=== PATIENT | male | born 1965 | race Caucasian/White ===

== ENCOUNTER 2021-12-28 11:46 | Inpatient (IN) | payer OTHER ==
[~2021-12-28] VITALS: Ht 172.7 cm; Wt 80.0 kg
--- NOTE | 2021-12-28 11:50 | PHYS DOC ---
General Adult HPI: HPI: Patient is a 56 year old male brought in by EMS for weakness and altered mental status. The patient is an extremely poor historian, it is difficult to elicit any meaningful or consistently accurate information from him. I spoke with the patient's significant other, and she reports that he has been weak, not acting himself for at least 1 week. She has been trying to get him to seek care, but he had refused. She finally got him in the car and took him to a urgent care, and he nearly passed out and the lobby. The urgent care did not see him, but they called 911 to have him transferred to the hospital. The patient has a history of hypertension and diabetes, he has not reportedly been on medication since at least 2015. He is noncompliant with his diet. He has not seen a primary care physician in many years. There has been no reported head injury or trauma, other than the reported near syncope. The patient denies chest pain, dyspnea, cough. There is a question of whether or not he has had some chills and active fever. No documented fever here. He has not taken any medications at all in the last 24 hours. He has not been eating and drinking as he usually does. He has not been vaccinated against Covid or influenza. Significant other denies any recent sick contacts, travel history, he has not been hospitalized in many years. He has no reported history of alcohol use or illicit drug use. He has no history of similar symptoms or altered mental status. Review of Systems: Review of Systems: Unable to obtain meaningful review of systems secondary to clinical condition, please see HPI. Heart Score: C/O Chest Pain: N/A Risk Factors: Risk Factors: DM, Current or recent (<one month) smoker, HTN, HLP, family history of CAD, obesity. Risk Scores: Score 0 - 3: 2.5% MACE over next 6 weeks - Discharge Home Score 4 - 6: 20.3% MACE over next 6 weeks - Admit for Clinical Observation Score 7 - 10: 72.7% MACE over next 6 weeks - Early Invasive Strategies Physical Exam: PE: Constitutional: He is at least mildly ill-appearing, disheveled, frail, appears older than stated age. He is unkempt and relatively malodorous. HENT: Normocephalic, atraumatic, oropharynx is patent, mucous membranes are tacky, no obvious oral or facial trauma. TMs are clear bilaterally. Nares are patent without rhinorrhea epistaxis. No hemotympanum. No otorrhea Eyes: PERRL, EOMI, conjunctiva normal, no discharge. No nystagmus. Sclera anicteric. Neck: Normal range of motion, no tenderness, supple, no stridor. Achy midline, no JVD, no meningismus Cardiovascular: Tachycardic, regular, +2 radial and +2 posterior tibial pulses bilaterally. No cyanosis or edema. Warm and well-perfused appearing Lungs & Thorax: Lungs are clear to auscultation bilaterally without rales, rhonchi or wheezes. No stridor. No tachypnea. No evidence of chest or thorax trauma. Abdomen: Abdomen is soft, nondistended, nontender to palpation, no palpable pulsatile mass, no evidence of abdominal wall or thorax trauma. No flank or abdominal ecchymoses. Skin: Warm, dry, no erythema, no rash. No jaundice. Back: Extremities: No tenderness, no cyanosis, no clubbing, ROM intact, no edema. [] Neurologic: Alert and oriented X 3, normal motor function, normal sensory function, no focal deficits noted. [] Psychologic: Affect normal, judgement normal, mood normal. [] EKG: EKG: EKG is interpreted at 1200 Rhythm is sinus Rate is 99 bpm [place] is left No STEMI Q waves V1, V2, V3 Radiology/Procedures: Radiology/Procedures: IMAGING REPORT Signed PATIENT: DAMI REID ACCOUNT: [id number] : 1965 LOCATION: ER AGE: 56 SEX: M EXAM STATUS: REG ER ORD. PHYSICIAN: SHIVANI NI DO REASON: AMS PROCEDURE: PORTABLE CHEST 1V XR CHEST 1V History: Altered mental status Comparison: None. Technique: AP radiograph of the chest. Findings: The lungs are mildly hypoinflated. No airspace consolidation, pleural effusion or pneumothorax. The cardiomediastinal silhouette and pulmonary vasculature are within normal limits. No acute osseous abnormality. Flowing osteophytes in the thoracic spine. Soft tissues are unremarkable. Impression: 1. Mild hypoinflation. Electronically signed by: Gabriel العلي MD (12/28/2021 12:29 PM) [id number] DICTATED and SIGNED BY: GABRIEL العلي MD DATE: 12/28/21 [id number] IMAGING REPORT Signed PATIENT: DAMI REID ACCOUNT: [id number] : 1965 LOCATION: ER AGE: 56 SEX: M EXAM STATUS: REG ER ORD. PHYSICIAN: SHIVANI NI DO REASON: AMS, pt uncooperative, had to be held for CT PROCEDURE: CT HEAD WO CONTRAST CT HEAD/BRAIN WO History: Altered mental status. Comparison: None. Technique: Noncontrast CT imaging was performed of the head. Findings: No intracranial hemorrhage. No mass effect. No hydrocephalus. No evidence of acute territorial infarction. Imaged orbits are unremarkable. Imaged paranasal sinuses and mastoid air cells are clear. The scalp and calvarium are unremarkable. Impression: 1. No acute intracranial abnormality. ----- Exposure: One or more of the following individualized dose reduction techniques were utilized for this examination: 1. Automated exposure control 2. Adjustment of the mA and/or kV according to patient size 3. Use of iterative reconstruction technique. Electronically signed by: Gabriel العلي MD (12/28/2021 1:36 PM) [id number] DICTATED and SIGNED BY: GABRIEL العلي MD DATE: 12/28/21 [id number] Course & Med Decision Making: Course & Med Decision Making Pertinent Labs and Imaging studies reviewed. (See chart for details) I have discussed the findings, differential diagnosis and plan of care with the patient as well as his significant other. I recommend hospitalization. I discussed my recommendation for lumbar puncture with the significant other, she verbalizes understanding and gives verbal consent for the procedure. Please see associated note for lumbar puncture procedure. The patient was given IV Ativan and IM Haldol for agitation. On several occasions, the patient attempted get up, take off his clothing and walk around the ER. He tried to get out of the ED gurney, between the rails of the bed. He got up and urinated on the floor. He was able to be verbally redirected. His clinical manifestation is seemingly consistent with an encephalopathic etiology. He is given IV fluid boluses. Blood cultures were obtained. He is empirically given a dose of IV Zosyn. Magnesium placement were ordered. P.o. potassium replacement ordered, he refused to take it. The patient will receive IV potassium replacement during admission. The patient he is accepted for admission by Dr. Dolan. Tino Disclaimer: Tino Disclaimer: This electronic medical record was generated, in whole or in part, using a voice recognition dictation system. Departure Departure Impression: Primary Impression: Altered mental status Additional Impressions: Acute delirium Hypokalemia Hypomagnesemia Hyperglycemia due to diabetes mellitus Medical non-compliance Lactic acidosis Disposition: ADMITTED INPATIENT Admitting Physician: ZAIDA (Dr. Dolan) Condition: GUARDED RAINE,SHIVANI Wilkerson DO Dec 28, 2021 11:50
[2021-12-28] MEDS ORDERED: IV NORMAL SALINE 1000ML BAG 1,000 ML IV ONE ×2 (12:15→13:30)
--- NOTE | 2021-12-28 12:37 | RAD ---
XR CHEST 1V History: Altered mental status Comparison: None. Technique: AP radiograph of the chest. Findings: The lungs are mildly hypoinflated. No airspace consolidation, pleural effusion or pneumothorax. The c ardiomediastinal silhouette and pulmonary vasculature are within normal limits. No acute osseous abno rmality. Flowing osteophytes in the thoracic spine. Soft tissues are unremarkable. Impression: 1. Mild hypoinflation. Electronically signed by: Gabriel Concepcion MD (12/28/2021 12:29 PM) [id number]
[2021-12-28 12:49] LABS: BARBITURATES NEG (NEG); BENZODIAZEPINES NEG (NEG); CANNABINOIDS NEG (NEG); COCAINE NEG (NEG); METHADONE NEG (NEG); OPIATES NEG (NEG); PHENCYCLIDINE NEG (NEG)
[2021-12-28 12:49] LABS: ACETAMIN < 2 mcg/ml (10-30); SALIC 1.5 mg/dL (2.8-20.0)
[2021-12-28 12:50] LABS: AMPHETAMINE/METHAMPHETAMINE NEG (NEG)
[2021-12-28 12:50] LABS: ETHANOL < 10 mg/dL (0-10)
[2021-12-28 12:51] LABS: BASO % 0 % (0-3); EOS % 0 % (0-3); HEMATOCRIT 49.8 % (39.0-53.0); LYMPH # 1.3 x10^3/uL (1.0-4.8); LYMPH % 12 % (24-48); MEAN CORPUSCULAR HEMOGLOBIN 28 pg (25-35); MEAN CORPUSCULAR HGB CONC 34 g/dL (31-37); MEAN CORPUSCULAR VOLUME 82 fL (79-100); MONO # 0.5 x10^3/uL (0.0-1.1); MONO % 5 % (0-9); NEUT # 9.2 x10^3/uL (1.8-7.7); NEUT % 83 % (31-73); PLATELET COUNT 308 x10^3/uL (140-400); RED BLOOD COUNT 6.07 x10^6/uL (4.30-5.70); WHITE BLOOD COUNT 11.1 x10^3/uL (4.0-11.0)
[2021-12-28 12:56] LABS: BILIRUBIN,URINE NEGATIVE (NEG); CLARITY,URINE HAZY; COLOR,URINE YELLOW
[2021-12-28 12:57] LABS: NITRITE,URINE NEGATIVE (NEG); PROTEIN,URINE NEGATIVE (NEG-TRACE); UROBILINOGEN,URINE 0.2 mg/dL (0.2 mg/dL)
[2021-12-28 12:58] LABS: BACTERIA,URINE 0 /HPF (0-FEW)
[2021-12-28] MEDS ORDERED: HALOPERIDOL LACTATE 5 MG/ML VIAL. ONE (12:58)
[2021-12-28] MEDS ORDERED: HALOPERIDOL LACTATE 5 MG/ML VIAL. IM ONE (13:00)
[2021-12-28 13:04] LABS: INFLUENZA A PATIENT NEGATIVE (NEGATIVE); INFLUENZA B PATIENT NEGATIVE (NEGATIVE)
--- NOTE | 2021-12-28 13:39 | RAD ---
CT HEAD/BRAIN WO History: Altered mental status. Comparison: None. Technique: Noncontrast CT imaging was performed of the head. Findings: No intracranial hemorrhage. No mass effect. No hydrocephalus. No evidence of acute territorial infar ction. Imaged orbits are unremarkable. Imaged paranasal sinuses and mastoid air cells are clear. The scalp a nd calvarium are unremarkable. Impression: 1. No acute intracranial abnormality. ----- Exposure: One or more of the following individualized dose reduction techniques were utilized for thi s examination: 1. Automated exposure control 2. Adjustment of the mA and/or kV according to patient size 3. Use of iterative reconstruction technique. Electronically signed by: Gabriel Concepcion MD (12/28/2021 1:36 PM) [id number]
[2021-12-28 14:10] LABS: ALBUMIN 3.5 g/dL (3.4-5.0); ALBUMIN/GLOBULIN RATIO 0.9 (1.0-1.7); CALCIUM 7.5 mg/dL (8.5-10.1); CREATININE 0.9 mg/dL (0.7-1.3); GFR 87.3; MAGNESIUM 1.4 mg/dL (1.8-2.4); PHOSPHORUS 2.9 mg/dL (2.6-4.7); TOTAL PROTEIN 7.2 g/dL (6.4-8.2)
[2021-12-28 14:31] LABS: POTASSIUM 2.6 mmol/L (3.5-5.1)
[2021-12-28] MEDS: POTASSIUM CHLORIDE 20 MEQ TABLET.ER. PO ONE ×2 (14:45→15:18)
[2021-12-28] MEDS ORDERED: POTASSIUM CHLORIDE 20MEQ 100 ML IV ONE (14:45)
[2021-12-28] MEDS ORDERED: MAGNESIUM SULFATE 2GM 50 ML IV ONE (14:45)
[2021-12-28] MEDS ORDERED: PIPERACILLIN/TAZOBACTAM 3.375 GM in IV NORMAL SALINE 50ML 50 ML IV ONE (14:45)
[2021-12-28] MEDS: POTASSIUM CHLORIDE 10MEQ 100 ML IV SCH ×2 (14:49→15:57)
[2021-12-28] MEDS ORDERED: LIDOCAINE 1%/EPI 1:100,000 20 ML VIAL. INJ ONE (15:15)
[2021-12-28 16:46] LABS: CSF PROTEIN 143.6 mg/dL (15.0-45.0)
[2021-12-28 18:36] VITALS: BP 178/105
[2021-12-28] MEDS ORDERED: DEXTROSE 50% 25 GM / 50ML DISP.SYRIN. IV PRN ×2 (19:00)
[2021-12-28] MEDS ORDERED: diphenhydrAMINE HCL 25 MG CAPSULE PO PRN ×2 (19:00)
[2021-12-28] MEDS ORDERED: diphenhydrAMINE 50 MG/ML VIAL IVP PRN (19:00)
[2021-12-28] MEDS ORDERED: ACETAMINOPHEN 325 MG TABLET. PO PRN (19:00)
[2021-12-28] MEDS ORDERED: ONDANSETRON PF 4 MG/2 ML VIAL. IVP PRN (19:00)
[2021-12-28] MEDS ORDERED: PROCHLORPERAZINE 10 MG/2 ML VIAL. IV PRN (19:00)
[2021-12-28] MEDS ORDERED: SENNOSIDES 8.6 MG TABLET PO PRN (19:00)
[2021-12-28] MEDS ORDERED: LABETALOL 20 MG/4 ML DISP.SYRIN. IVP PRN (19:00)
[2021-12-28] MEDS ORDERED: LORazepam 0.5 MG TABLET PO PRN (19:00)
[2021-12-28] MEDS ORDERED: hydrALAZINE 20 MG/ML VIAL. IVP PRN (19:00)
[2021-12-28] MEDS ORDERED: ZOLPIDEM 5 MG TABLET. PO PRN (19:00)
[2021-12-28] MEDS ORDERED: DOCUSATE SODIUM 100 MG CAPSULE. PO PRN (19:00)
--- NOTE | 2021-12-28 19:03 | PDOC1 ---
History and Physical Date of Service: DOS: DATE: 12/28/21 TIME: 18:48 Chief Complaint: Chief Complain: Altered mental status. History of Present Illness: HPI: History obtained from discussion with the ED physician and chart review Patient is a 56-year-old male with past medical history of diabetes mellitus and hypertension who comes in for weakness and altered mental status. Patient's was the main source of history as the patient is unable to provide any meaningful history. Significant other states that the patient has not been acting himself for the past 1 week. actually had the patient go to urgent care but the patient passed out in the lobby and she he was immediately transferred to the hospital. states the patient has not been taking any medication for his hypertension and diabetes and is also noncompliant with his diet as well. Has not seen a PCP in many years approximately 6 years. No Covid or influenza vaccine. Denies any recent sick contacts or travel history and has not been in the hospital for many years. LP was completed in the ED by ED physician EKG shows normal sinus rhythm at rate of 99 bpm with left axis deviation. No acute ST elevations. There is Q waves in V1 through V3 Past Medical/Surgical History: PMH/PSH: History of diabetes mellitus and hypertension Allergies: Allergies: Coded Allergies: No Known Drug Allergies (Unverified , 12/28/21) Family History: Family History: Reviewed in the chart with no relative findings Social History: Social History: Limited due to altered mental status Current Medications: Current Medications Current Medications Sodium Chloride 1,000 ml @ 1,000 mls/hr 1X ONCE IV Last administered on 12/28/21at 13:00; Start 12/28/21 at 12:15; Stop 12/28/21 at 13:14; Status DC Lorazepam (Ativan Inj) 2 mg STK-MED ONCE .ROUTE ; Start 12/28/21 at 12:32; Stop 12/28/21 at 12:36; Status DC Lorazepam (Ativan Inj) 2 mg STK-MED ONCE .ROUTE ; Start 12/28/21 at 12:32; Stop 12/28/21 at 12:37; Status DC Haloperidol Lactate (Haldol Inj) 5 mg 1X ONCE IM Last administered on 12/28/21at 13:03; Start 12/28/21 at 13:00; Stop 12/28/21 at 13:08; Status DC Lorazepam (Ativan Inj) 2 mg 1X ONCE IVP Last administered on 12/28/21at 13:02; Start 12/28/21 at 13:00; Stop 12/28/21 at 13:08; Status DC Haloperidol Lactate (Haldol Inj) 5 mg STK-MED ONCE .ROUTE ; Start 12/28/21 at 12:58; Stop 12/28/21 at 12:58; Status DC Sodium Chloride 1,000 ml @ 1,000 mls/hr 1X ONCE IV Last administered on 12/28/21at 14:22; Start 12/28/21 at 13:30; Stop 12/28/21 at 14:29; Status DC Magnesium Sulfate 50 ml @ 25 mls/hr 1X ONCE IV Last administered on 12/28/21at 14:49; Start 12/28/21 at 14:45; Stop 12/28/21 at 16:44; Status DC Potassium Chloride/Water 100 ml @ 100 mls/hr 1X ONCE IV ; Start 12/28/21 at 14:45; Stop 12/28/21 at 14:38; Status DC Potassium Chloride (Klor-Con) 20 meq 1X ONCE PO ; Start 12/28/21 at 14:45; Stop 12/28/21 at 14:46; Status DC Piperacillin Sod/ Tazobactam Sod 3.375 gm/Sodium Chloride 50 ml @ 100 mls/hr 1X ONCE IV Last administered on 12/28/21at 14:48; Start 12/28/21 at 14:45; Stop 12/28/21 at 15:14; Status DC Potassium Chloride/Water 100 ml @ 100 mls/hr Q1H IV Last administered on 12/28/21at 15:57; Start 12/28/21 at 15:00; Stop 12/28/21 at 16:59; Status DC Lidocaine/ Epinephrine (LIDOCAINE 1%-EPI 1:100,000 Multi-Dose) 20 ml 1X ONCE INJ Last administered on 12/28/21at 15:15; Start 12/28/21 at 15:15; Stop 12/28/21 at 15:16; Status DC Lorazepam (Ativan Inj) 2 mg 1X ONCE IVP Last administered on 12/28/21at 15:45; Start 12/28/21 at 15:45; Stop 12/28/21 at 15:46; Status DC ROS: Review of Systems Review of System Limited due to altered mental status Physical Exam: Vital Signs: Vital Signs Date Time Temp Pulse Resp B/P (MAP) Pulse Ox O2 Delivery O2 Flow Rate FiO2 12/28/21 18:36 97.8 100 16 178/105 (129) 96 Room Air 97.8 Physcial Exam: General: Ill-appearing and disheveled and frail. HEENT: Pupils equally round and reactive to light, EOMI, no discharge, normal conjunctiva Neck: Supple, no nuchal rigidity, no JVD, trachea midline, no tenderness Cardiac: RRR, no murmurs, no gallops, no rubs Chest/Lungs: CTAB, no wheeze, no rhonchi, no crackles Abdomen: soft, non-distended, no guarding, no peritoneal signs, non-tender Back: No tenderness Extremities: no edema, pulses intact, non-tender,capillary refill <3 sec bilateral upper and lower extremities, Neuro: Alert and oriented x 4, no focal deficits, normal speech Labs: Labs: Laboratory Tests Test 12/28/21 12:05 12/28/21 12:13 12/28/21 12:28 12/28/21 13:40 White Blood Count 11.1 x10^3/uL (4.0-11.0) Red Blood Count 6.07 x10^6/uL (4.30-5.70) Hemoglobin 17.0 g/dL (13.0-17.5) Hematocrit 49.8 % (39.0-53.0) Mean Corpuscular Volume 82 fL (79-100) Mean Corpuscular Hemoglobin 28 pg (25-35) Mean Corpuscular Hemoglobin Concent 34 g/dL (31-37) Red Cell Distribution Width 13.0 % (11.5-14.5) Platelet Count 308 x10^3/uL (140-400) Neutrophils (%) (Auto) 83 % (31-73) Lymphocytes (%) (Auto) 12 % (24-48) Monocytes (%) (Auto) 5 % (0-9) Eosinophils (%) (Auto) 0 % (0-3) Basophils (%) (Auto) 0 % (0-3) Neutrophils # (Auto) 9.2 x10^3/uL (1.8-7.7) Lymphocytes # (Auto) 1.3 x10^3/uL (1.0-4.8) Monocytes # (Auto) 0.5 x10^3/uL (0.0-1.1) Eosinophils # (Auto) 0.0 x10^3/uL (0.0-0.7) Basophils # (Auto) 0.0 x10^3/uL (0.0-0.2) Erythrocyte Sedimentation Rate 4 (0-15) Lactic Acid Level 3.6 mmol/L (0.4-2.0) Ammonia < 10 mcmol/L (11-34) Troponin I High Sensitivity 10 ng/L (4-75) C-Reactive Protein, Quantitative 2.4 mg/L (0-3.3) Salicylates Level 1.5 mg/dL (2.8-20.0) Salicylate Last Dose Date Unknown Salicylate Last Dose Time Unknown Acetaminophen Level < 2 mcg/ml (10-30) Acetaminophen Last Dose Date Unknown Acetaminophen Last Dose Time Unknown Ethyl Alcohol Level < 10 mg/dL (0-10) Influenza Type A Antigen Negative (NEGATIVE) Influenza Type B Antigen Negative (NEGATIVE) SARS-CoV-2 Antigen (Rapid) Negative (NEGATIVE) Urine Collection Type Unknown Urine Color Yellow Urine Clarity Hazy Urine pH 7.0 (<5.0-8.0) Urine Specific [place] 1.015 (1.000-1.030) Urine Protein Negative mg/dL (NEG-TRACE) Urine Glucose (UA) >=1000 mg/dL (NEG) Urine Ketones (Stick) 80 mg/dL (NEG) Urine Blood Negative (NEG) Urine Nitrite Negative (NEG) Urine Bilirubin Negative (NEG) Urine Urobilinogen Dipstick 0.2 mg/dL (0.2 mg/dL) Urine Leukocyte Esterase Negative (NEG) Urine RBC 1-2 /HPF (0-2) Urine WBC 1-4 /HPF (0-4) Urine Squamous Epithelial Cells Occ /LPF Urine Bacteria 0 /HPF (0-FEW) Urine Opiates Screen Neg (NEG) Urine Methadone Screen Neg (NEG) Urine Barbiturates Neg (NEG) Urine Phencyclidine Screen Neg (NEG) Urine Amphetamine/Methamphetamine Neg (NEG) Urine Benzodiazepines Screen Neg (NEG) Urine Cocaine Screen Neg (NEG) Urine Cannabinoids Screen Neg (NEG) Urine Ethyl Alcohol Neg (NEG) Sodium Level 138 mmol/L (136-145) Potassium Level 2.6 mmol/L (3.5-5.1) Chloride Level 98 mmol/L (98-107) Carbon Dioxide Level 24 mmol/L (21-32) Anion Gap 16 (6-14) Blood Urea Nitrogen 15 mg/dL (8-26) Creatinine 0.9 mg/dL (0.7-1.3) Estimated GFR (Cockcroft-Gault) 87.3 BUN/Creatinine Ratio 17 (6-20) Glucose Level 322 mg/dL (70-99) Calcium Level 7.5 mg/dL (8.5-10.1) Phosphorus Level 2.9 mg/dL (2.6-4.7) Magnesium Level 1.4 mg/dL (1.8-2.4) Total Bilirubin 1.0 mg/dL (0.2-1.0) Aspartate Amino Transf (AST/SGOT) 13 U/L (15-37) Alanine Aminotransferase (ALT/SGPT) 24 U/L (16-63) Alkaline Phosphatase 110 U/L (46-116) Creatine Kinase 46 U/L (39-308) Total Protein 7.2 g/dL (6.4-8.2) Albumin 3.5 g/dL (3.4-5.0) Albumin/Globulin Ratio 0.9 (1.0-1.7) Thyroid Stimulating Hormone (TSH) 0.997 uIU/mL (0.358-3.74) Test 12/28/21 15:43 12/28/21 16:15 CSF Glucose 175 mg/dL (37-70) CSF Total Protein 143.6 mg/dL (15.0-45.0) Lactic Acid Level 2.7 mmol/L (0.4-2.0) Laboratory Tests Test 12/28/21 12:05 12/28/21 12:13 12/28/21 12:28 12/28/21 13:40 White Blood Count 11.1 x10^3/uL (4.0-11.0) Red Blood Count 6.07 x10^6/uL (4.30-5.70) Hemoglobin 17.0 g/dL (13.0-17.5) Hematocrit 49.8 % (39.0-53.0) Mean Corpuscular Volume 82 fL (79-100) Mean Corpuscular Hemoglobin 28 pg (25-35) Mean Corpuscular Hemoglobin Concent 34 g/dL (31-37) Red Cell Distribution Width 13.0 % (11.5-14.5) Platelet Count 308 x10^3/uL (140-400) Neutrophils (%) (Auto) 83 % (31-73) Lymphocytes (%) (Auto) 12 % (24-48) Monocytes (%) (Auto) 5 % (0-9) Eosinophils (%) (Auto) 0 % (0-3) Basophils (%) (Auto) 0 % (0-3) Neutrophils # (Auto) 9.2 x10^3/uL (1.8-7.7) Lymphocytes # (Auto) 1.3 x10^3/uL (1.0-4.8) Monocytes # (Auto) 0.5 x10^3/uL (0.0-1.1) Eosinophils # (Auto) 0.0 x10^3/uL (0.0-0.7) Basophils # (Auto) 0.0 x10^3/uL (0.0-0.2) Erythrocyte Sedimentation Rate 4 (0-15) Lactic Acid Level 3.6 mmol/L (0.4-2.0) Ammonia < 10 mcmol/L (11-34) Troponin I High Sensitivity 10 ng/L (4-75) C-Reactive Protein, Quantitative 2.4 mg/L (0-3.3) Salicylates Level 1.5 mg/dL (2.8-20.0) Salicylate Last Dose Date Unknown Salicylate Last Dose Time Unknown Acetaminophen Level < 2 mcg/ml (10-30) Acetaminophen Last Dose Date Unknown Acetaminophen Last Dose Time Unknown Ethyl Alcohol Level < 10 mg/dL (0-10) Influenza Type A Antigen Negative (NEGATIVE) Influenza Type B Antigen Negative (NEGATIVE) SARS-CoV-2 Antigen (Rapid) Negative (NEGATIVE) Urine Collection Type Unknown Urine Color Yellow Urine Clarity Hazy Urine pH 7.0 (<5.0-8.0) Urine Specific [place] 1.015 (1.000-1.030) Urine Protein Negative mg/dL (NEG-TRACE) Urine Glucose (UA) >=1000 mg/dL (NEG) Urine Ketones (Stick) 80 mg/dL (NEG) Urine Blood Negative (NEG) Urine Nitrite Negative (NEG) Urine Bilirubin Negative (NEG) Urine Urobilinogen Dipstick 0.2 mg/dL (0.2 mg/dL) Urine Leukocyte Esterase Negative (NEG) Urine RBC 1-2 /HPF (0-2) Urine WBC 1-4 /HPF (0-4) Urine Squamous Epithelial Cells Occ /LPF Urine Bacteria 0 /HPF (0-FEW) Urine Opiates Screen Neg (NEG) Urine Methadone Screen Neg (NEG) Urine Barbiturates Neg (NEG) Urine Phencyclidine Screen Neg (NEG) Urine Amphetamine/Methamphetamine Neg (NEG) Urine Benzodiazepines Screen Neg (NEG) Urine Cocaine Screen Neg (NEG) Urine Cannabinoids Screen Neg (NEG) Urine Ethyl Alcohol Neg (NEG) Sodium Level 138 mmol/L (136-145) Potassium Level 2.6 mmol/L (3.5-5.1) Chloride Level 98 mmol/L (98-107) Carbon Dioxide Level 24 mmol/L (21-32) Anion Gap 16 (6-14) Blood Urea Nitrogen 15 mg/dL (8-26) Creatinine 0.9 mg/dL (0.7-1.3) Estimated GFR (Cockcroft-Gault) 87.3 BUN/Creatinine Ratio 17 (6-20) Glucose Level 322 mg/dL (70-99) Calcium Level 7.5 mg/dL (8.5-10.1) Phosphorus Level 2.9 mg/dL (2.6-4.7) Magnesium Level 1.4 mg/dL (1.8-2.4) Total Bilirubin 1.0 mg/dL (0.2-1.0) Aspartate Amino Transf (AST/SGOT) 13 U/L (15-37) Alanine Aminotransferase (ALT/SGPT) 24 U/L (16-63) Alkaline Phosphatase 110 U/L (46-116) Creatine Kinase 46 U/L (39-308) Total Protein 7.2 g/dL (6.4-8.2) Albumin 3.5 g/dL (3.4-5.0) Albumin/Globulin Ratio 0.9 (1.0-1.7) Thyroid Stimulating Hormone (TSH) 0.997 uIU/mL (0.358-3.74) Test 12/28/21 15:43 12/28/21 16:15 CSF Glucose 175 mg/dL (37-70) CSF Total Protein 143.6 mg/dL (15.0-45.0) Lactic Acid Level 2.7 mmol/L (0.4-2.0) Images: Images PROCEDURE: CT HEAD WO CONTRAST CT HEAD/BRAIN WO History: Altered mental status. Comparison: None. Technique: Noncontrast CT imaging was performed of the head. Findings: No intracranial hemorrhage. No mass effect. No hydrocephalus. No evidence of acute territorial infarction. Imaged orbits are unremarkable. Imaged paranasal sinuses and mastoid air cells are clear. The scalp and calvarium are unremarkable. Impression: 1. No acute intracranial abnormality. PROCEDURE: PORTABLE CHEST 1V XR CHEST 1V History: Altered mental status Comparison: None. Technique: AP radiograph of the chest. Findings: The lungs are mildly hypoinflated. No airspace consolidation, pleural effusion or pneumothorax. The cardiomediastinal silhouette and pulmonary vasculature are within normal limits. No acute osseous abnormality. Flowing osteophytes in the thoracic spine. Soft tissues are unremarkable. Impression: 1. Mild hypoinflation. Assessment/Plan Assessment/Plan Acute metabolic/hypertensive encephalopathy Hypertensive urgency Lactic acidosis Severe hypokalemia Mild hyperglycemia Hypomagnesemia History of hypertension History of diabetes Admit to hospitalist service for further management Delirium prevention protocols Fall precautions Pending TSH and B12 levels IV electrolyte replacement as needed IV antihypertensive regimen to maintain systolic blood pressures between 140-180 Serial neuro exams R-ISS and Accu-Cheks Continue IV fluids while n.p.o. PT OT and speech modalities Lovenox for DVT prophylaxis Protonix GI prophylaxis ADA diet CODE STATUS full Discussed with RN and SW Disposition inpatient management as above DPOA: Justifications for Admission Other Justification BROWN ADKINS MD Dec 28, 2021 19:03
[2021-12-28 19:33] VITALS: BP 124/70
[2021-12-28 19:46] LABS: CSF CLARITY TURBID; CSF COLOR RED; CSF WBC COUNT 28 /cmm (Not Established)
[2021-12-28 19:47] LABS: CSF MON % 13 %; CSF PMN % 87 %; CSF RBC COUNT 27050 /cmm (Not Established)
[2021-12-28] MEDS: IV NORMAL SALINE 1000ML BAG 1,000 ML IV SCH (20:00)
[2021-12-28] MEDS ORDERED: ENOXAPARIN 40 MG/0.4 ML SYRINGE. SQ SCH (21:00)
[2021-12-28] MEDS: POTASSIUM CL 40MEQ IN 0.9%NACL 1,000 ML IV SCH (21:42)
[2021-12-28 23:36] VITALS: BP 134/61
[2021-12-29 03:24] VITALS: BP 133/81
[2021-12-29] MEDS: IV NORMAL SALINE 1000ML BAG 1,000 ML IV SCH (06:00)
[2021-12-29 07:00] VITALS: BP 129/75
[2021-12-29] MEDS ORDERED: PANTOPRAZOLE IV PUSH 40 MG VIAL. IVP SCH (07:30)
--- NOTE | 2021-12-29 07:48 | EKG ---
[facility] [address] [place] [address] Test Date: 2021-12-28 Test Time: 11:58:17 Pat Name: DAMI REID Department: Room: [facility] Gender: M [employer]: : 1965 Requested By: SHIVANI NI Order Number: [id number] Reading MD: Mello Perez MD Measurements Intervals [place] Rate: 99 P: 223 [place]: 112 QRS: -66 QRSD: 96 T: 35 QT: 370 QTc: 474 Interpretive Statements SINUS RHYTHM POOR R WAVE PROGRESSION INFERIOR INFARCT PATTERN Electronically Signed On 01-02-2022 11:23:20 [employer]ICULTURAL EQUIPMENT TEST ENGINEER by Mello Perez MD
[2021-12-29 08:05] LABS: BASO # 0.1 x10^3/uL (0.0-0.2); BASO % 1 % (0-3); EOS # 0.1 x10^3/uL (0.0-0.7); EOS % 1 % (0-3); HEMATOCRIT 42.5 % (39.0-53.0); HEMOGLOBIN 14.4 g/dL (13.0-17.5); LYMPH # 2.2 x10^3/uL (1.0-4.8); LYMPH % 28 % (24-48); MEAN CORPUSCULAR HEMOGLOBIN 28 pg (25-35); MEAN CORPUSCULAR HGB CONC 34 g/dL (31-37); MEAN CORPUSCULAR VOLUME 82 fL (79-100); MONO # 0.8 x10^3/uL (0.0-1.1); MONO % 10 % (0-9); NEUT # 4.7 x10^3/uL (1.8-7.7); NEUT % 61 % (31-73); PLATELET COUNT 243 x10^3/uL (140-400); RED BLOOD COUNT 5.16 x10^6/uL (4.30-5.70); RED CELL DISTRIBUTION WIDTH 12.9 % (11.5-14.5); WHITE BLOOD COUNT 7.8 x10^3/uL (4.0-11.0)
[2021-12-29 08:16] LABS: CALCIUM 7.2 mg/dL (8.5-10.1); CREATININE 0.6 mg/dL (0.7-1.3); GFR 139.4; MAGNESIUM 1.9 mg/dL (1.8-2.4); PHOSPHORUS 2.6 mg/dL (2.6-4.7); POTASSIUM 3.3 mmol/L (3.5-5.1)
[2021-12-29] MEDS: POTASSIUM CL 40MEQ IN 0.9%NACL 1,000 ML IV SCH (08:56)
[2021-12-29] MEDS: POTASSIUM CHLORIDE 10MEQ 100 ML IV SCH ×4 (08:57→12:41)
[2021-12-29] MEDS: INSULIN LISPRO 300 UNITS/3 ML VIAL. SQ SCH ×2 (09:01→12:06)
--- NOTE | 2021-12-29 10:48 | NUR ---
SW following. Discussed with RN, pt from home with , room air, ada diet, flu and Rapid COVID-19 negative. Per RN, possible discharge later today. RN advised no SW needs at this time. SW will continue to follow.
[2021-12-29 11:00] VITALS: BP 127/74
[2021-12-29] MEDS ORDERED: METF500T16 PO (11:55)
--- NOTE | 2021-12-29 11:56 | DISCH ---
DISCHARGE INSTRUCTIONS Condition on Discharge Condition on Discharge: Stable Activity After Discharge Activity Instructions for Disc: Activity as tolerated Lifting Instructions after Dis: No heavy lifting Exercise Instruction after Dis: Walk 30 min, 5 x per week Driving Instructions after Dis: Do not drive today Weight Bearing Status after Di: No restrictions Diet after Discharge Diet after Discharge: Diabetic No Calorie Level Follow-Up Follow up with: PCP within 2 weeks of discharge BROWN ADKINS MD Dec 29, 2021 11:56
[2021-12-29] MEDS ORDERED: metFORMIN 500 MG TABLET PO SCH ×2 (12:15→17:00)
--- NOTE | 2021-12-29 14:20 | NUR ---
Discharge Note: DAMI REID Discharge instructions and discharge home medications reviewed with Patient and Significant Other and a copy given. All questions have been answered and understanding verbalized. The following instructions and handouts were given: discharge instructions, new prescription, education and follow up recommendations. Discontinued lines and drains: Peripheral IV discontinued intact. Patient discharged to Home or Self Care with Significant Other via Wheelchair off unit by RESOURCING CONSULTANT.
[2021-12-30 02:09] LABS: HEMOGLOBIN A1C 11.7 % (4.8-5.6)
== END 2021-12-29 14:20 | disposition home or self-care (01) | DRG 304 ==
LOC: ER 11:46 → 5 NORTH 13:20
PROVIDERS: ADMIT Internal Medicine; ATTEND Internal Medicine
PROC: 009U3ZX Drainage of Spinal Canal, Percutaneous Approach, Diagnostic (ICD-10-PCS; principal; 2021-12-28)
DX: I16.0 Hypertensive urgency (principal); G93.41 Metabolic encephalopathy; I10 Essential (primary) hypertension; E87.6 Hypokalemia; M25.78 Osteophyte, vertebrae; Z91.19 Patient's noncompliance with other medical treatment and regimen; E83.42 Hypomagnesemia; E11.65 Type 2 diabetes mellitus with hyperglycemia; Z91.11 Patient's noncompliance with dietary regimen; Z20.822 Contact with and (suspected) exposure to COVID-19
CPT/HCPCS: 36415; 62270; 70450; 71045; 80048; 80053; 80307; 80329; 81001; 82140; 82550; 82607; 82945; 82962; 83036; 83605; 83735; 84100; 84157; 84443; 84484; 85025; 85651; 86140; 87040; 87075; 87077; 87428; 89051; 93005; 96361; 96365; 96366; 96368; 96372; 96375; 96376; C9113; G0480; J1630; J1650; J1815; J2060; J2543; J3475; J3480; J3490; J7030; 99285-25; G0378

== ENCOUNTER 2022-01-23 02:11 | Observation (INO) | payer OTHER ==
[~2022-01-23] VITALS: Ht 175.3 cm; Wt 79.5 kg
[~2022-01-23 02:11] MED LIST: METF500T16 PO
--- NOTE | 2022-01-23 02:21 | PHYS DOC ---
Past Medical History Past Surgical History: No Surgical History Smoking Status: Unknown if ever smoked Alcohol Use: None General Adult EDM: Chief Complaint: BLOOD SUGAR PROBLEM HPI: HPI: History obtained from patient. Patient is a 56-year-old male who presents via EMS with a past medical history significant for hypertension, [id number] diabetes who presents with nausea, vomiting, lightheadedness. He states he had 4-5 episodes of nonbloody nonbilious emesis today. States that 1 hour prior to arrival while laying in bed he became suddenly lightheaded. Denies any vertiginous symptoms. Notes he was recently started on Metformin and lisinopril. States his first dose was today. Notes he has been a diabetic for 10 years but has not been on medicine in 5. States he was recently hospitalized our facility a couple of weeks ago for similar issue with vomiting. Denies any diarrhea. States he has some mild diffuse abdominal cramping. States he does not have lightheadedness at this time. Denies chest pain or shortness of breath. Denies true syncope. Denies fevers. Per chart review patient was discharged from facility proximately week ago. Admitted for altered mental status and found to have hypokalemia, hypomagnesia, lactic acidosis, hyperglycemia. All these were treated and he was ultimately discharged home. Review of Systems: Review of Systems: Constitutional: Denies fever or chills. [] Eyes: Denies change in visual acuity. [] HENT: Denies nasal congestion or sore throat. [] Respiratory: Denies cough or shortness of breath. [] Cardiovascular: Positive for lightheaded GI: Positive for abdominal pain, nausea, vomiting : Denies dysuria. [] Musculoskeletal: Denies back pain or joint pain. [] Integument: Denies rash. [] Neurologic: Denies headache, focal weakness or sensory changes. [] Endocrine: Denies polyuria or polydipsia. [] Lymphatic: Denies swollen glands. [] Psychiatric: Denies depression or anxiety. [] Heart Score: C/O Chest Pain: No Risk Factors: Risk Factors: DM, Current or recent (<one month) smoker, HTN, HLP, family history of CAD, obesity. Risk Scores: Score 0 - 3: 2.5% MACE over next 6 weeks - Discharge Home Score 4 - 6: 20.3% MACE over next 6 weeks - Admit for Clinical Observation Score 7 - 10: 72.7% MACE over next 6 weeks - Early Invasive Strategies Allergies: Allergies: Allergies Coded Allergies Type Severity Reaction Last Updated Verified No Known Drug Allergies 12/28/21 No Physical Exam: PE: Constitutional: Well developed, well nourished, no acute distress, non-toxic appearance. [] HENT: Normocephalic, atraumatic, bilateral external ears normal, oropharynx moist, no oral exudates, nose normal. [] Eyes: PERRLA, EOMI, conjunctiva normal, no discharge. [] Neck: Normal range of motion, no tenderness, supple, no stridor. [] Cardiovascular:Heart rate regular rhythm, no murmur [] Lungs & Thorax: Bilateral breath sounds clear to auscultation [] Abdomen: Soft, nontender, nonacute abdomen. No involuntary guarding or rigidity noted. No acute peritonitis. Skin: Warm, dry, no erythema, no rash. [] Back: No tenderness, no CVA tenderness. [] Extremities: No tenderness, no cyanosis, no clubbing, ROM intact, no edema. [] Neurologic: Alert and oriented X 3, normal motor function, normal sensory function, no focal deficits noted. [] Psychologic: Affect normal, judgement normal, mood normal. [] Current Patient Data: Labs: Laboratory Tests Test 01/23/22 02:46 01/23/22 05:10 White Blood Count 9.9 x10^3/uL (4.0-11.0) Red Blood Count 5.68 x10^6/uL (4.30-5.70) Hemoglobin 16.2 g/dL (13.0-17.5) Hematocrit 47.0 % (39.0-53.0) Mean Corpuscular Volume 83 fL (79-100) Mean Corpuscular Hemoglobin 29 pg (25-35) Mean Corpuscular Hemoglobin Concent 35 g/dL (31-37) Red Cell Distribution Width 14.0 % (11.5-14.5) Platelet Count 260 x10^3/uL (140-400) Neutrophils (%) (Auto) 76 % (31-73) Lymphocytes (%) (Auto) 16 % (24-48) Monocytes (%) (Auto) 7 % (0-9) Eosinophils (%) (Auto) 1 % (0-3) Basophils (%) (Auto) 1 % (0-3) Neutrophils # (Auto) 7.5 x10^3/uL (1.8-7.7) Lymphocytes # (Auto) 1.6 x10^3/uL (1.0-4.8) Monocytes # (Auto) 0.7 x10^3/uL (0.0-1.1) Eosinophils # (Auto) 0.1 x10^3/uL (0.0-0.7) Basophils # (Auto) 0.1 x10^3/uL (0.0-0.2) Sodium Level 138 mmol/L (136-145) Chloride Level 99 mmol/L (98-107) Carbon Dioxide Level 27 mmol/L (21-32) Anion Gap 12 (6-14) Blood Urea Nitrogen 9 mg/dL (8-26) Estimated GFR (Cockcroft-Gault) 116.7 BUN/Creatinine Ratio 13 (6-20) Glucose Level 250 mg/dL (70-99) Lactic Acid Level 3.9 mmol/L (0.4-2.0) Calcium Level 8.8 mg/dL (8.5-10.1) Total Bilirubin 1.2 mg/dL (0.2-1.0) Aspartate Amino Transf (AST/SGOT) 12 U/L (15-37) Alkaline Phosphatase 100 U/L (46-116) Total Protein 7.9 g/dL (6.4-8.2) Albumin 4.0 g/dL (3.4-5.0) Albumin/Globulin Ratio 1.0 (1.0-1.7) Lipase 21 U/L (73-393) Ethyl Alcohol Level < 10 mg/dL (0-10) Urine Opiates Screen Neg (NEG) Urine Methadone Screen Neg (NEG) Urine Barbiturates Neg (NEG) Urine Phencyclidine Screen Neg (NEG) Urine Amphetamine/Methamphetamine Neg (NEG) Urine Benzodiazepines Screen Neg (NEG) Urine Cocaine Screen Neg (NEG) Urine Cannabinoids Screen Neg (NEG) Urine Ethyl Alcohol Neg (NEG) Vital Signs: Vital Signs Date Time Temp Pulse Resp B/P (MAP) Pulse Ox O2 Delivery O2 Flow Rate FiO2 01/23/22 02:15 97.6 94 22 202/98 (132) 96 Room Air 97.6 Vital Signs Date Time Temp Pulse Resp B/P (MAP) Pulse Ox O2 Delivery O2 Flow Rate FiO2 01/23/22 02:15 97.6 94 22 202/98 (132) 96 Room Air 97.6 EKG: EKG: EKG consistent with sinus tachycardia. Ventricular rate 101 bpm. Left axis deviation noted. And was normal. No acute ischemia noted. [] Radiology/Procedures: Radiology/Procedures: [facility] [address] [place] [address] IMAGING REPORT Signed PATIENT: DAMI REID ACCOUNT: [id number] : 1965 LOCATION: ER AGE: 56 SEX: M EXAM STATUS: PRE ER ORD. PHYSICIAN: DAVID MATTHEW DO REASON: abd pain, vomiting, OMNI 300 75 ML IV PROCEDURE: CT ABD PELV W/ IV CONTRST ONLY EXAMINATION: CT ABDOMEN+PELVIS W CLINICAL HISTORY: Abdominal pain, vomiting. TECHNIQUE: CT of the abdomen and pelvis was performed using standard technique, scanning from just above the dome of the diaphragm to the symphysis pubis following administration of intravenous contrast. CT Dose Reduction Employed: One or more of the following individualized dose reduction techniques were utilized for this examination: 1. Automated exposure control 2. Adjustment of the mA and/or kV according to patient size 3. Use of iterative reconstruction technique. COMPARISON: None FINDINGS: Minimal dependent bibasilar subsegmental atelectasis. Cholelithiasis. Liver, pancreas, spleen, and adrenal glands unremarkable. Mild bilateral hydroureteronephrosis. Moderate to markedly distended urinary bladder. Mildly enlarged prostate. No bowel dilation or definite wall thickening. Appendix within normal limits. Small hiatal hernia. Mild arterial atherosclerotic calcification without aneurysm. No evidence of acute osseous abnormality. IMPRESSION: Moderate to markedly distended urinary bladder and mild bilateral hydroureteronephrosis, correlate for bilateral of obstruction. Cholelithiasis. Electronically signed by: Ajit Pedersen DO (01/23/2022 5:02 AM) [facility] DICTATED and SIGNED BY: AJIT PEDERSEN DO DATE: 01/23/22 0453 [] Course & Med Decision Making: Course & Med Decision Making Pertinent Labs and Imaging studies reviewed. (See chart for details) Patient is a 56-year-old male who presents with a chief complaint of lightheadedness with intractable nausea and vomiting over the past 24 hours. In itial vital signs notable for tachycardia. Clinically patient does appear dehydrated and somewhat malnourished. Broad work-up obtained. He does have initial lactic acidosis of 3.9. Hypomagnesia present. I do suspect his lactic acidosis is due to dehydration. Aggressive IV fluids administered. CT abdomen pelvis reveals no acute surgical etiology including ischemic bowel. Alcohol level normal. UDS unremarkable. Antibiotics to be deferred at this time given there are no clear source of bacterial infection. Per chart review was actually hospitalized for similar presentation approximately 2 weeks ago. Exact cause of his vomiting is unclear. Could be related to gastroparesis if he has a long history of poorly controlled blood sugar. Orthostatic vital signs were assessed and patient did have a significant drop in his systolic blood pressure although he never did become hypotensive. Overall I did discuss the possibility of discharge home versus observation with the patient. Ultimately I do feel he wo uld benefit from further monitoring with IV fluids and magnesium replacement. Case discussed with hospitalist who agrees with plan. Repeat lactate currently pending Dragon Disclaimer: Tino Disclaimer: This electronic medical record was generated, in whole or in part, using a voice recognition dictation system. Departure Departure Impression: Primary Impression: Lactic acidosis Additional Impressions: Hypomagnesemia Hyperglycemia due to diabetes mellitus Disposition: ADMITTED INPATIENT Condition: GOOD Referrals: NO PCP (PCP) DAVID MATTHEW DO Jan 23, 2022 02:21
[2022-01-23] MEDS ORDERED: IV NORMAL SALINE 1000ML BAG 1,000 ML IV ONE ×3 (02:30→06:30)
[2022-01-23 02:55] LABS: BASO # 0.1 x10^3/uL (0.0-0.2); BASO % 1 % (0-3); EOS # 0.1 x10^3/uL (0.0-0.7); EOS % 1 % (0-3); HEMOGLOBIN 16.2 g/dL (13.0-17.5); LYMPH # 1.6 x10^3/uL (1.0-4.8); LYMPH % 16 % (24-48); MEAN CORPUSCULAR HEMOGLOBIN 29 pg (25-35); MEAN CORPUSCULAR HGB CONC 35 g/dL (31-37); MEAN CORPUSCULAR VOLUME 83 fL (79-100); MONO # 0.7 x10^3/uL (0.0-1.1); MONO % 7 % (0-9); NEUT # 7.5 x10^3/uL (1.8-7.7); NEUT % 76 % (31-73); PLATELET COUNT 260 x10^3/uL (140-400); RED BLOOD COUNT 5.68 x10^6/uL (4.30-5.70); WHITE BLOOD COUNT 9.9 x10^3/uL (4.0-11.0)
[2022-01-23] MEDS ORDERED: ONDANSETRON PF 4 MG/2 ML VIAL. IVP ONE (03:00)
[2022-01-23 03:03] LABS: CALCIUM 8.8 mg/dL (8.5-10.1); CREATININE 0.7 mg/dL (0.7-1.3); GFR 116.7; POTASSIUM 3.4 mmol/L (3.5-5.1)
[2022-01-23 03:09] LABS: MAGNESIUM 1.5 mg/dL (1.8-2.4); TOTAL BILIRUBIN 1.2 mg/dL (0.2-1.0); TOTAL PROTEIN 7.9 g/dL (6.4-8.2)
[2022-01-23] MEDS ORDERED: MAGNESIUM SULFATE 2GM 50 ML IV ONE (04:00)
[2022-01-23] MEDS ORDERED: CONTRAST GIVEN. MC PRN (05:00)
[2022-01-23] MEDS ORDERED: IOHEXOL 300 MG/ML 100ML VIAL. IV ONE (05:00)
--- NOTE | 2022-01-23 05:04 | RAD ---
EXAMINATION: CT ABDOMEN+PELVIS W CLINICAL HISTORY: Abdominal pain, vomiting. TECHNIQUE: CT of the abdomen and pelvis was performed using standard technique, scanning from just ab ove the dome of the diaphragm to the symphysis pubis following administration of intravenous contrast . CT Dose Reduction Employed: One or more of the following individualized dose reduction techniques wer e utilized for this examination: 1. Automated exposure control 2. Adjustment of the mA and/or kV ac cording to patient size 3. Use of iterative reconstruction technique. COMPARISON: None FINDINGS: Minimal dependent bibasilar subsegmental atelectasis. Cholelithiasis. Liver, pancreas, spleen, and adrenal glands unremarkable. Mild bilateral hydroureteronephrosis. Moderate to markedly distended urinary bladder. Mildly enlarged prostate. No bowel dilation or definite wall thickening. Appendix within normal limits. Small hiatal hernia. Mild arterial atherosclerotic calcification without aneurysm. No evidence of acute osseous abnormality. IMPRESSION: Moderate to markedly distended urinary bladder and mild bilateral hydroureteronephrosis, correlate fo r bilateral of obstruction. Cholelithiasis. Electronically signed by: Ajit Sung DO (01/23/2022 5:02 AM) SERVANDO
[2022-01-23 05:23] LABS: BARBITURATES NEG (NEG); BENZODIAZEPINES NEG (NEG); CANNABINOIDS NEG (NEG); COCAINE NEG (NEG); METHADONE NEG (NEG); OPIATES NEG (NEG); PHENCYCLIDINE NEG (NEG)
[2022-01-23 05:28] LABS: AMPHETAMINE/METHAMPHETAMINE NEG (NEG)
[2022-01-23] MEDS ORDERED: ONDANSETRON PF 4 MG/2 ML VIAL. IVP PRN (05:45)
--- NOTE | 2022-01-23 05:53 | EKG ---
[facility] [address] [place] [address] Test Date: 2022-01-23 Test Time: 05:02:02 Pat Name: DAMI REID Department: Room: Gender: M Electronic Pagination System Operator: [id number] : 1965 Requested By: DAVID MATTHEW Order Number: [id number] Reading MD: Michael Carlisle Measurements Intervals [place] Rate: 101 P: -98 CO: 122 QRS: -59 QRSD: 92 T: 35 QT: 366 QTc: 475 Interpretive Statements SINUS TACHYCARDIA ABNORMAL LEFT AXIS DEVIATION QRS(T) CONTOUR ABNORMALITY CONSISTENT WITH INFEROLATERAL INFARCT ABNORMAL ECG RI6.01 Electronically Signed On 01-28-2022 21:54:06 CDT by Michael Carlisle
[2022-01-23 08:30] VITALS: BP 154/86
--- NOTE | 2022-01-23 11:37 | HP ---
DATE OF SERVICE: 01/23/2022 ADMIT DATE: 01/23/2022 CHIEF COMPLAINT: Nausea, vomiting, weakness, lightheadedness, elevated glucose. HISTORY OF PRESENT ILLNESS: The patient is a pleasant middle-aged 56-year-old male who has been diabetic for 10 years. I do not think he has been on medicine for 5, but recently placed on Glucophage who presented with some abdominal pain, nausea, vomiting, lightheadedness. While in the ER, his CAT scan showed bilateral hydroureteronephrosis and gallstones. The patient has been admitted. We are consulting GI and Urology. PAST MEDICAL HISTORY: Diabetic, probable noncompliance, recent admission for nausea. ALLERGIES: None. FAMILY HISTORY: Diabetes. 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 He does not drink, smoke or take drugs. MEDICATIONS: Reviewed, please refer to the MRAD. REVIEW OF SYSTEMS: GENERAL: No history of weight change, weakness or fevers. SKIN: No bruising, hair changes or rashes. EYES: No blurred, double or loss of vision. NOSE AND THROAT: No history of nosebleeds, hoarseness or sore throat. HEART: No history of palpitations, chest pain or shortness of breath on exertion. LUNGS: Denies cough, hemoptysis, wheezing or shortness of breath. GASTROINTESTINAL: Denies changes in appetite, nausea, vomiting, diarrhea or constipation. GENITOURINARY: No history of frequency, urgency, hesitancy or nocturia. NEUROLOGIC: Denies history of numbness, tingling, tremor or weakness. PSYCHIATRIC: No history of panic, anxiety or depression. ENDOCRINE: No history of heat or cold intolerance, polyuria or polydipsia. EXTREMITIES: Denies muscle weakness, joint pain, pain on walking or stiffness. PHYSICAL EXAMINATION: VITALS: Within normal limits and are stable. GENERAL: No apparent distress. Alert and oriented. HEENT: Normal cephalic atraumatic, external auditory canals are patent. EYES: Extraocular muscles are intact, pupils are equally round and reactive to light and accommodation. MUSCULOSKELETAL: Well developed, well nourished, good range of motion. ENDOCRINE: No thyromegaly was palpated. LYMPHATICS: No cervical chain or axillary nodes were noted. HEMATOPOIETIC: No bruising. NECK: Supple, no JVD, no thyromegaly was noted. LUNGS: Clear to auscultation in all lung elam without rhonchi or wheezing. HEART: RRR, S1, S2 present. Peripheral pulses intact, no obvious murmurs were noted. ABDOMEN: Soft, nontender. Positive bowel sounds no organomegaly, normal bowel sounds. EXTREMITIES: Without any cyanosis, clubbing, or edema. Pedal pulses intact, Homans sign is negative. NEUROLOGIC: Normal speech, normal tone. A and O x 3, moves all extremities, no obvious focal deficits. PSYCHIATRIC: Normal affect, normal mood. Stable. SKIN: No ulcerations or rashes, good skin turgor, no jaundice. VASCULAR: Good capillary refill, neurovascular bundle appears to be intact.. LABORATORY DATA: White count 9, hemoglobin 16, platelets 260. Electrolytes normal other than potassium 3.4, glucose 250. Lactic acid is high at 3.9. CT of the abdomen shows bilateral hydroureteronephrosis and gallstones. ASSESSMENT AND PLAN: Nausea, vomiting, abdominal pain, bilateral hydroureteronephrosis and gallstones and incidental finding of hypokalemia and lactic acidosis and hyperglycemia. The patient will be admitted. We will give IV fluids. Consult Urology. Consult Gastroenterology. P.r.n. Zofran. Home meds. Deep venous thrombosis prophylaxis. Full code. Trend labs. Encourage p.o. intake. MIRIAM DR: DENA/francheska TID: [id number]
[2022-01-23] MEDS: IV NORMAL SALINE 1000ML BAG 1,000 ML IV SCH ×2 (12:10→22:30)
[2022-01-23 12:59] VITALS: BP 131/75
--- NOTE | 2022-01-23 12:59 | PDOC2 ---
GI CONSULT Date of Service: DATE: 01/23/22 TIME: 12:40 Reason For Consult: nausea vomiting gallstone HPI: HPI: 56 y/o male admitted through ER. Ill x 3 weeks - began with headache and blurry vision - admitted here w/ hypertensive urgency/encephalopathy. Head CT unremarkable then. Discharged w/ metformin which he apparently didn't take. Saw PCP on Sunday01/20/22 and was prescribed lisinopril and metformin which he took once on Sunday. During this time, has had intermittent n/v that was worse yesterday w/ weakness, dizziness, and being "really off balance." Fell down while urinating and stayed there awhile. Vomiting occurs several hours after eating, emesis contains chunks of food and liquid ("red powerade"). Occasional mild lower abdominal discomfort. Denies reflux/heartburn, dysphagia, hematemesis, constipation, hematochezia, melena, and change in appetite. Not unusual for him to have "diarrhea" (described as "gas and chunks"). No chronic n/v issues in the past. No previous EGD. "Rectal scope" in past at [facility] - was awake for procedure, can't remember if did any prep - done for intermittent rectal bleeding, was told had hemorrhoids. Denies GB, liver, pancreas, or PUD history. Takes ASA and Tylenol PRN. H/o DM since 2007 - took self off metformin, lisinopril, glipizide in [id number] "because they had no effect besides diarrhea," has lost 80 pounds since then unintentionally. Hypertensive in ER - BP 253/178 at one point. A1c on 12/29/[address]: distended urinary bladder and mild bilateral hydroureteronephrosis, also noted cholelithiasis. To have bladder scanned and urology to see. Theodore Mcelroy present. He ate regular breakfast this morning without issue. PMH: PMH: HTN, DM, asthma LP FH: Family History: Other (father - stage IV renal disease) ROS: GEN: Denies fevers, chills, sweats HEENT: Denies blurred vision, sore throat CV: Denies chest pain RESP: Denies shortness of air, cough GI: Per HPI : Denies hematuria, dysuria ENDO: +weight loss NEURO: +dizziness MSK: Denies weakness, joint pain/swelling SKIN: Denies jaundice, pruritus Vitals: Vitals: Vital Signs Date Time Temp Pulse Resp B/P (MAP) Pulse Ox O2 Delivery O2 Flow Rate FiO2 01/23/22 06:20 92 18 142/73 (96) 94 Room Air 01/23/22 02:15 97.6 97.6 Labs: Labs: Laboratory Tests Test 01/23/22 02:46 01/23/22 05:10 01/23/22 05:41 01/23/22 10:05 White Blood Count 9.9 x10^3/uL (4.0-11.0) Red Blood Count 5.68 x10^6/uL (4.30-5.70) Hemoglobin 16.2 g/dL (13.0-17.5) Hematocrit 47.0 % (39.0-53.0) Mean Corpuscular Volume 83 fL (79-100) Mean Corpuscular Hemoglobin 29 pg (25-35) Mean Corpuscular Hemoglobin Concent 35 g/dL (31-37) Red Cell Distribution Width 14.0 % (11.5-14.5) Platelet Count 260 x10^3/uL (140-400) Neutrophils (%) (Auto) 76 % (31-73) Lymphocytes (%) (Auto) 16 % (24-48) Monocytes (%) (Auto) 7 % (0-9) Eosinophils (%) (Auto) 1 % (0-3) Basophils (%) (Auto) 1 % (0-3) Neutrophils # (Auto) 7.5 x10^3/uL (1.8-7.7) Lymphocytes # (Auto) 1.6 x10^3/uL (1.0-4.8) Monocytes # (Auto) 0.7 x10^3/uL (0.0-1.1) Eosinophils # (Auto) 0.1 x10^3/uL (0.0-0.7) Basophils # (Auto) 0.1 x10^3/uL (0.0-0.2) Sodium Level 138 mmol/L (136-145) Potassium Level 3.4 mmol/L (3.5-5.1) Chloride Level 99 mmol/L (98-107) Carbon Dioxide Level 27 mmol/L (21-32) Anion Gap 12 (6-14) Blood Urea Nitrogen 9 mg/dL (8-26) Creatinine 0.7 mg/dL (0.7-1.3) Estimated GFR (Cockcroft-Gault) 116.7 BUN/Creatinine Ratio 13 (6-20) Glucose Level 250 mg/dL (70-99) Lactic Acid Level 3.9 mmol/L (0.4-2.0) 2.4 mmol/L (0.4-2.0) 2.7 mmol/L (0.4-2.0) Calcium Level 8.8 mg/dL (8.5-10.1) Magnesium Level 1.5 mg/dL (1.8-2.4) Total Bilirubin 1.2 mg/dL (0.2-1.0) Aspartate Amino Transf (AST/SGOT) 12 U/L (15-37) Alanine Aminotransferase (ALT/SGPT) 20 U/L (16-63) Alkaline Phosphatase 100 U/L (46-116) Total Protein 7.9 g/dL (6.4-8.2) Albumin 4.0 g/dL (3.4-5.0) Albumin/Globulin Ratio 1.0 (1.0-1.7) Lipase 21 U/L (73-393) Ethyl Alcohol Level < 10 mg/dL (0-10) Urine Opiates Screen Neg (NEG) Urine Methadone Screen Neg (NEG) Urine Barbiturates Neg (NEG) Urine Phencyclidine Screen Neg (NEG) Urine Amphetamine/Methamphetamine Neg (NEG) Urine Benzodiazepines Screen Neg (NEG) Urine Cocaine Screen Neg (NEG) Urine Cannabinoids Screen Neg (NEG) Urine Ethyl Alcohol Neg (NEG) Allergies: Coded Allergies: No Known Drug Allergies (Unverified , 12/28/21) Medications: Current Medications Medications (Trade) Dose Ordered Sig/Chapin Route PRN Reason Start Time Stop Time Status Last Admin Dose Admin Sodium Chloride 1,000 ml @ 30 mls/hr 1X ONCE IV 01/23/22 03:00 01/24/22 12:19 01/23/22 02:30 Sodium Chloride 1,000 ml @ 200 mls/hr 1X ONCE IV 01/23/22 02:30 01/23/22 07:29 DC 01/23/22 02:29 Ondansetron HCl (Zofran) 8 mg 1X ONCE IVP 01/23/22 03:00 01/23/22 03:01 DC 01/23/22 02:31 Magnesium Sulfate 50 ml @ 50 mls/hr 1X ONCE IV 01/23/22 04:00 01/23/22 04:59 DC 01/23/22 04:04 Iohexol (Omnipaque 300 Mg/ml) 75 ml 1X ONCE IV 01/23/22 05:00 01/23/22 05:01 DC 01/23/22 04:51 Sodium Chloride 1,000 ml @ 1,000 mls/hr 1X ONCE IV 01/23/22 06:30 01/23/22 07:29 DC 01/23/22 03:30 Imaging: Imaging: CT A/P IMPRESSION: Moderate to markedly distended urinary bladder and mild bilateral hydroureteronephrosis, correlate for bilateral of obstruction. Cholelithiasis. PE: GEN: NAD HEENT: Atraumatic, PERRL LUNGS: CTAB HEART: RRR ABD: NABS, S/ND/NT EXTREMITY: No edema SKIN: No rashes, no jaundice NEURO/PSYCH: A & O 3 A/P: A/P: Weakness, dizziness, fall Uncontrolled HTN and DM, non-compliance N/v, intermittent lower abdominal discomfort (?suprapubic) Lactic acidosis, hypomagnesemia Abnormal CT - distended urinary bladder, mild bilateral hydroureteronephrosis CRC screen - non previous colonoscopy H/o hemorrhoids Cholelithiasis - noted on CT -- Suspect n/v related to uncontrolled HTN and DM. Continue per primary and urology. Now tolerating diet - observe from GI standpoint. 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 Cholelithiasis seems like incidental finding - no upper abdominal pain, normal LFTs, etc. Needs outpt screening colonoscopy, could consider EGD at that time if n/v a recurrent issue. WESLEY NATION Jan 23, 2022 12:59
--- NOTE | 2022-01-23 13:55 | PDOC2 ---
UROLOGY CONSULT Date of Service DATE: 01/23/22 TIME: 13:45 Reason for Consult Reason for Consult: hydronephrosis Identification/Chief Complaint Chief Complaint nausea History of Present Illness Reason for Visit: 56yo male presented to the ER for nausea, vomiting, and diarrhea. CT a/p was done that showed bilateral hydroureteronephrosis and markedly distended bladder. Urology was consulted to address this. Pt denies prior knowledge of this. Has never seen a urologist. He feels that he empties his bladder well. Denies slow stream, hesitancy, incontinence, dysuria, hematuria. Denies prior history of urologic surgery. Only voids 1-2 times per day. Nocturia 0-1x. He does have uncontrolled diabetes, stopped his medications for this in 2016. His A1c was almost 12. Cr normal. Pt asking to go home today. Past Medical History Endocrine: Diabetes Family History Family History: Family History Unknown Social History No ALCOHOL: none Current Medications Current Medications Current Medications Info (CONTRAST GIVEN -- Rx MONITORING) 1 each PRN DAILY PRN MC SEE COMMENTS; Start 01/23/22 at 05:00; Stop 01/25/22 at 04:59 Iohexol (Omnipaque 300 Mg/ml) 75 ml 1X ONCE IV Last administered on 01/23/22at 04:51; Start 01/23/22 at 05:00; Stop 01/23/22 at 05:01; Status DC Magnesium Sulfate 50 ml @ 50 mls/hr 1X ONCE IV Last administered on 01/23/22at 04:04; Start 01/23/22 at 04:00; Stop 01/23/22 at 04:59; Status DC Ondansetron HCl (Zofran) 4 mg PRN Q8HRS PRN IVP NAUSEA/VOMITING 1ST CHOICE; Start 01/23/22 at 05:45; Stop 01/24/22 at 05:44 Ondansetron HCl (Zofran) 8 mg 1X ONCE IVP Last administered on 01/23/22at 02:31; Start 01/23/22 at 03:00; Stop 01/23/22 at 03:01; Status DC Pantoprazole Sodium (Protonix) 40 mg DAILYAC PO ; Start 01/23/22 at 13:30 Sodium Chloride 1,000 ml @ 30 mls/hr 1X ONCE IV Last administered on 01/23/22at 02:30; Start 01/23/22 at 03:00; Stop 01/24/22 at 12:19 Sodium Chloride 1,000 ml @ 75 mls/hr [id number] IV ; Start 01/23/22 at 11:30 Sodium Chloride 1,000 ml @ 200 mls/hr 1X ONCE IV Last administered on 01/23/22at 02:29; Start 01/23/22 at 02:30; Stop 01/23/22 at 07:29; Status DC Sodium Chloride 1,000 ml @ 1,000 mls/hr 1X ONCE IV Last administered on 01/23/22at 03:30; Start 01/23/22 at 06:30; Stop 01/23/22 at 07:29; Status DC Allergies Allergies: Coded Allergies: No Known Drug Allergies (Unverified , 12/28/21) ROS Review Of Systems: CONSTITUTIONAL: No fever or chills EYES: No recent changes SKIN: No rash or itching CARDIOVASCULAR: No chest pain, syncope, palpitations, or edema RESPIRATORY: No SOB or cough GASTROINTESTINAL: +nausea, vomiting NEUROLOGICAL: No headaches or weakness ENDOCRINE: No cold or heat intolerance GENITOURINARY: No urgency or frequency of urination MUSCULOSKELETAL: No back pain or joint pain LYMPHATICS: No enlarged lymph nodes PSYCHIATRIC: No anxiety or depression Physical Exam Physical Exam: General: Pleasant, no acute distress, well groomed Eyes: conjunctiva anicteric, eyes full range of motion ENT: moist oral mucosa, normal dentition Neck: Trachea midline, no masses Respiratory: unlabored breathing, not using accessory muscles, no crackles or wheezes Cardiovascular: Regular rate and rhythm, no peripheral edema Abdomen: nontender, nondistended, no hepatosplenomegaly, no masses Skin: no rashes or skin lesions on visualized skin Psych: normal mood, affect. Alert and oriented x 3. Vitals VITALS Vital Signs Date Time Temp Pulse Resp B/P (MAP) Pulse Ox O2 Delivery O2 Flow Rate FiO2 01/23/22 12:59 98.0 91 16 131/75 (93) 96 Room Air 98.0 Labs Labs Laboratory Tests Test 01/23/22 02:46 01/23/22 05:10 01/23/22 05:41 01/23/22 10:05 White Blood Count 9.9 x10^3/uL (4.0-11.0) Red Blood Count 5.68 x10^6/uL (4.30-5.70) Hemoglobin 16.2 g/dL (13.0-17.5) Hematocrit 47.0 % (39.0-53.0) Mean Corpuscular Volume 83 fL (79-100) Mean Corpuscular Hemoglobin 29 pg (25-35) Mean Corpuscular Hemoglobin Concent 35 g/dL (31-37) Red Cell Distribution Width 14.0 % (11.5-14.5) Platelet Count 260 x10^3/uL (140-400) Neutrophils (%) (Auto) 76 % (31-73) Lymphocytes (%) (Auto) 16 % (24-48) Monocytes (%) (Auto) 7 % (0-9) Eosinophils (%) (Auto) 1 % (0-3) Basophils (%) (Auto) 1 % (0-3) Neutrophils # (Auto) 7.5 x10^3/uL (1.8-7.7) Lymphocytes # (Auto) 1.6 x10^3/uL (1.0-4.8) Monocytes # (Auto) 0.7 x10^3/uL (0.0-1.1) Eosinophils # (Auto) 0.1 x10^3/uL (0.0-0.7) Basophils # (Auto) 0.1 x10^3/uL (0.0-0.2) Sodium Level 138 mmol/L (136-145) Potassium Level 3.4 mmol/L (3.5-5.1) Chloride Level 99 mmol/L (98-107) Carbon Dioxide Level 27 mmol/L (21-32) Anion Gap 12 (6-14) Blood Urea Nitrogen 9 mg/dL (8-26) Creatinine 0.7 mg/dL (0.7-1.3) Estimated GFR (Cockcroft-Gault) 116.7 BUN/Creatinine Ratio 13 (6-20) Glucose Level 250 mg/dL (70-99) Lactic Acid Level 3.9 mmol/L (0.4-2.0) 2.4 mmol/L (0.4-2.0) 2.7 mmol/L (0.4-2.0) Calcium Level 8.8 mg/dL (8.5-10.1) Magnesium Level 1.5 mg/dL (1.8-2.4) Total Bilirubin 1.2 mg/dL (0.2-1.0) Aspartate Amino Transf (AST/SGOT) 12 U/L (15-37) Alanine Aminotransferase (ALT/SGPT) 20 U/L (16-63) Alkaline Phosphatase 100 U/L (46-116) Total Protein 7.9 g/dL (6.4-8.2) Albumin 4.0 g/dL (3.4-5.0) Albumin/Globulin Ratio 1.0 (1.0-1.7) Lipase 21 U/L (73-393) Ethyl Alcohol Level < 10 mg/dL (0-10) Urine Opiates Screen Neg (NEG) Urine Methadone Screen Neg (NEG) Urine Barbiturates Neg (NEG) Urine Phencyclidine Screen Neg (NEG) Urine Amphetamine/Methamphetamine Neg (NEG) Urine Benzodiazepines Screen Neg (NEG) Urine Cocaine Screen Neg (NEG) Urine Cannabinoids Screen Neg (NEG) Urine Ethyl Alcohol Neg (NEG) Laboratory Tests Test 01/23/22 02:46 01/23/22 05:10 01/23/22 05:41 01/23/22 10:05 White Blood Count 9.9 x10^3/uL (4.0-11.0) Red Blood Count 5.68 x10^6/uL (4.30-5.70) Hemoglobin 16.2 g/dL (13.0-17.5) Hematocrit 47.0 % (39.0-53.0) Mean Corpuscular Volume 83 fL (79-100) Mean Corpuscular Hemoglobin 29 pg (25-35) Mean Corpuscular Hemoglobin Concent 35 g/dL (31-37) Red Cell Distribution Width 14.0 % (11.5-14.5) Platelet Count 260 x10^3/uL (140-400) Neutrophils (%) (Auto) 76 % (31-73) Lymphocytes (%) (Auto) 16 % (24-48) Monocytes (%) (Auto) 7 % (0-9) Eosinophils (%) (Auto) 1 % (0-3) Basophils (%) (Auto) 1 % (0-3) Neutrophils # (Auto) 7.5 x10^3/uL (1.8-7.7) Lymphocytes # (Auto) 1.6 x10^3/uL (1.0-4.8) Monocytes # (Auto) 0.7 x10^3/uL (0.0-1.1) Eosinophils # (Auto) 0.1 x10^3/uL (0.0-0.7) Basophils # (Auto) 0.1 x10^3/uL (0.0-0.2) Sodium Level 138 mmol/L (136-145) Potassium Level 3.4 mmol/L (3.5-5.1) Chloride Level 99 mmol/L (98-107) Carbon Dioxide Level 27 mmol/L (21-32) Anion Gap 12 (6-14) Blood Urea Nitrogen 9 mg/dL (8-26) Creatinine 0.7 mg/dL (0.7-1.3) Estimated GFR (Cockcroft-Gault) 116.7 BUN/Creatinine Ratio 13 (6-20) Glucose Level 250 mg/dL (70-99) Lactic Acid Level 3.9 mmol/L (0.4-2.0) 2.4 mmol/L (0.4-2.0) 2.7 mmol/L (0.4-2.0) Calcium Level 8.8 mg/dL (8.5-10.1) Magnesium Level 1.5 mg/dL (1.8-2.4) Total Bilirubin 1.2 mg/dL (0.2-1.0) Aspartate Amino Transf (AST/SGOT) 12 U/L (15-37) Alanine Aminotransferase (ALT/SGPT) 20 U/L (16-63) Alkaline Phosphatase 100 U/L (46-116) Total Protein 7.9 g/dL (6.4-8.2) Albumin 4.0 g/dL (3.4-5.0) Albumin/Globulin Ratio 1.0 (1.0-1.7) Lipase 21 U/L (73-393) Ethyl Alcohol Level < 10 mg/dL (0-10) Urine Opiates Screen Neg (NEG) Urine Methadone Screen Neg (NEG) Urine Barbiturates Neg (NEG) Urine Phencyclidine Screen Neg (NEG) Urine Amphetamine/Methamphetamine Neg (NEG) Urine Benzodiazepines Screen Neg (NEG) Urine Cocaine Screen Neg (NEG) Urine Cannabinoids Screen Neg (NEG) Urine Ethyl Alcohol Neg (NEG) Images Images EXAMINATION: CT ABDOMEN+PELVIS W CLINICAL HISTORY: Abdominal pain, vomiting. TECHNIQUE: CT of the abdomen and pelvis was performed using standard technique, scanning from just above the dome of the diaphragm to the symphysis pubis following administration of intravenous contrast. CT Dose Reduction Employed: One or more of the following individualized dose reduction techniques were utilized for this examination: 1. Automated exposure control 2. Adjustment of the mA and/or kV according to patient size 3. Use of iterative reconstruction technique. COMPARISON: None FINDINGS: Minimal dependent bibasilar subsegmental atelectasis. Cholelithiasis. Liver, pancreas, spleen, and adrenal glands unremarkable. Mild bilateral hydroureteronephrosis. Moderate to markedly distended urinary bladder. Mildly enlarged prostate. No bowel dilation or definite wall thickening. Appendix within normal limits. Small hiatal hernia. Mild arterial atherosclerotic calcification without aneurysm. No evidence of acute osseous abnormality. IMPRESSION: Moderate to markedly distended urinary bladder and mild bilateral hydroureteronephrosis, correlate for bilateral of obstruction. Cholelithiasis. Electronically signed by: Ajit Sung DO (01/23/2022 5:02 AM) [facility] Assessment/Plan Assessment/Plan Bilateral hydroureteronephrosis Images reviewed Check UA. Cr normal. Obstructive uropathy most likely due to markedly distended bladder. Elevated PVR's. Causes for this BPH and/or neurogenic bladder 2/2 uncontrolled DM. Recommend seymour placement for bladder and renal decompression. Start tamsulosin. Voiding trial in 1-2 week with follow-up renal ultrasound. May also need cystoscopy and urodynamics to further determine cause of incomplete bladder emptying. Also screening PSA, but not today due to seymour placement. I discussed the above with pt and he voiced understanding. Ok with d/c per hospitalist. Please call with questions. D/w Dr. Trinidad. BRADLY JOSEPH Jan 23, 2022 13:55
[2022-01-23 15:00] VITALS: BP 139/85
[2022-01-23 15:13] LABS: BACTERIA,URINE 0 /HPF (0-FEW); WBC,URINE 0 /HPF (0-4)
[2022-01-23] MEDS: PANTOPRAZOLE 40 MG TABLET.DR. PO SCH (16:10)
[2022-01-23 19:00] VITALS: BP 156/79
[2022-01-23 23:00] VITALS: BP 173/87
[2022-01-24 03:00] VITALS: BP 166/95
[2022-01-24] MEDS: PANTOPRAZOLE 40 MG TABLET.DR. PO SCH ×2 (07:30→07:50)
[2022-01-24 08:00] VITALS: BP 143/82
--- NOTE | 2022-01-24 10:05 | PDOC ---
Date of Service: DATE: 01/24/22 TIME: 10:00 Subjective: Subjective: Still asleep - not much history from pt this morning - opened eyes briefly. Objective: Objective: No GI concerns per nurse - aware that he is difficult to awaken today. Reports urology plans to DC w/ García. Apparently refused pantoprazole. Vital Signs: Vital Signs Date Time Temp Pulse Resp B/P (MAP) Pulse Ox O2 Delivery O2 Flow Rate FiO2 01/24/22 08:00 98.3 72 12 143/82 (102) 90 Room Air 98.3 Labs: Laboratory Tests Test 01/23/22 10:05 01/23/22 14:10 01/23/22 17:08 01/23/22 19:56 Lactic Acid Level 2.7 mmol/L Urine Collection Type Unknown Urine Color (Auto) Yellow Urine Turbidity Clear Urine pH (Auto) 7.0 Urine Specific [place] 1.017 Urine Protein (Auto) Negative mg/dL Urine Glucose (Auto)(UA) >=1000 mg/dL Urine Ketones (Auto) 10 mg/dL Urine Blood (Auto) Negative Urine Nitrite Negative Urine Bilirubin (Auto) Negative Urine Urobilinogen (Auto) 4 mg/dL Urine Leukocyte Esterase (Auto) Negative Urine RBC 3-5 /HPF Urine WBC 0 /HPF Urine Squamous Epithelial Cells Few /LPF Urine Bacteria 0 /HPF Urine Mucus Slight /LPF Glucose (Fingerstick) 221 mg/dL 248 mg/dL Test 01/24/22 08:21 Glucose (Fingerstick) 227 mg/dL PE: GEN: NAD LUNGS: CTAB HEART: RRR ABD: S/ND/NT NEURO/PSYCH: lethargic, difficult to rouse this morning A/P: Uncontrolled HTN and DM, non-compliance N/v - resolved Lactic acidosis, hypomagnesemia - no labs today Bilateral hydroureteronephrosis, distended bladder - per urology Cholelithiasis - incidental CT finding -- Lethargic today. GI-canela, no recurrent vomiting. Continue per primary/urology. Justicifation of Admission Dx: Justifications for Admission: Justification of Admission Dx: Yes Altered Mental Status: Altered Mental Status [place] Jan 24, 2022 10:04
[2022-01-24 10:26] LABS: BASO # 0.1 x10^3/uL (0.0-0.2); BASO % 1 % (0-3); EOS # 0.1 x10^3/uL (0.0-0.7); EOS % 2 % (0-3); HEMATOCRIT 41.8 % (39.0-53.0); HEMOGLOBIN 14.4 g/dL (13.0-17.5); LYMPH # 2.1 x10^3/uL (1.0-4.8); LYMPH % 24 % (24-48); MEAN CORPUSCULAR HEMOGLOBIN 28 pg (25-35); MEAN CORPUSCULAR HGB CONC 34 g/dL (31-37); MEAN CORPUSCULAR VOLUME 83 fL (79-100); MONO # 0.8 x10^3/uL (0.0-1.1); MONO % 9 % (0-9); NEUT # 5.8 x10^3/uL (1.8-7.7); NEUT % 65 % (31-73); PLATELET COUNT 251 x10^3/uL (140-400); RED BLOOD COUNT 5.06 x10^6/uL (4.30-5.70); RED CELL DISTRIBUTION WIDTH 13.7 % (11.5-14.5); WHITE BLOOD COUNT 8.9 x10^3/uL (4.0-11.0)
--- NOTE | 2022-01-24 10:26 | PDOC ---
SUBJECTIVE Subjective Pt resting in bed, replies verbally to questions but does not open his eyes denies pain OBJECTIVE Vital Signs Vital Signs Date Time Temp Pulse Resp B/P (MAP) Pulse Ox O2 Delivery O2 Flow Rate FiO2 01/24/22 08:00 98.3 72 12 143/82 (102) 90 Room Air 98.3 01/24/22 03:00 98.2 91 20 166/95 (118) 97 Room Air 98.2 01/23/22 23:00 97.9 94 22 173/87 (115) 98 Room Air 97.9 01/23/22 19:00 98.0 99 20 156/79 (104) 94 Room Air 98.0 01/23/22 15:00 98.0 97 16 139/85 (103) 96 Room Air 98.0 01/23/22 12:59 98.0 91 16 131/75 (93) 96 Room Air 98.0 I & O Intake and Output 01/24/22 07:00 Intake Total 1050 ml Output Total 1200 ml Balance -150 ml Intake Oral 0 ml IV Total 1050 ml Output Urine Total 1200 ml # Voids 2 PHYSICAL EXAM Physical Exam resting, NAD no respiratory distress seymour draining yellow urine ASSESSMENT/PLAN Assessment/Plan Bilateral hydroureteronephrosis Images reviewed Check UA. Cr normal. Obstructive uropathy most likely due to markedly distended bladder. Elevated PV R's. Causes for this BPH and/or neurogenic bladder 2/2 uncontrolled DM. Recommend seymour placement for bladder and renal decompression. Start tamsulosin. Voiding trial in 1-2 week with follow-up renal ultrasound. May also need cystoscopy and urodynamics to further determine cause of incomplete bladder emptying. Also screening PSA, but not today due to seymour placement. I discussed the above with pt and he voiced understanding. Also d/w pt that our clinic unfortunately does not accept his insurance for follow-up purposes. I recommend he f/u at Urology and requested that social work assist him with securing this appointment. Ok with d/c per hospitalist. Please call with questions. COMMENT Lab Laboratory Tests Test 01/23/22 14:10 01/23/22 17:08 01/23/22 19:56 01/24/22 08:21 Urine Collection Type Unknown Urine Color (Auto) Yellow Urine Turbidity Clear Urine pH (Auto) 7.0 (<5.0-8.0) Urine Specific [place] 1.017 (1.000-1.030) Urine Protein (Auto) Negative mg/dL (Negative) Urine Glucose (Auto)(UA) >=1000 mg/dL (Negative) Urine Ketones (Auto) 10 mg/dL (Negative) Urine Blood (Auto) Negative (Negative) Urine Nitrite Negative (Negative) Urine Bilirubin (Auto) Negative (Negative) Urine Urobilinogen (Auto) 4 mg/dL (Normal) Urine Leukocyte Esterase (Auto) Negative (Negative) Urine RBC 3-5 /HPF (0-2) Urine WBC 0 /HPF (0-4) Urine Squamous Epithelial Cells Few /LPF Urine Bacteria 0 /HPF (0-FEW) Urine Mucus Slight /LPF Glucose (Fingerstick) 221 mg/dL (70-99) 248 mg/dL (70-99) 227 mg/dL (70-99) Justifications for Admission Other Justification Acute encephalopathy BRADLY JOSEPH Jan 24, 2022 10:26
[2022-01-24 10:45] LABS: CALCIUM 7.7 mg/dL (8.5-10.1); CREATININE 0.6 mg/dL (0.7-1.3); GFR 139.4
--- NOTE | 2022-01-24 10:50 | PDOC ---
[employer] PROGRESS NOTE Date of Service DOS: DATE: 01/24/22 TIME: 10:49 Chief Complaint Chief Complaint Resolving nausea vomiting suspect element of gastroenteritis Uncontrolled HTN and DM, non-compliance N/v - resolved Lactic acidosis, hypomagnesemia - no labs today Bilateral hydroureteronephrosis, distended bladder - per urology Cholelithiasis - incidental CT finding History of Present Illness History of Present Illness 01/24/2022 Patient seen Discussed with RN Discussed with case management He now has a García We will go ahead and discharge with close outpatient follow-up with urology Vitals/I&O Vitals/I&O: Vital Signs Date Time Temp Pulse Resp B/P (MAP) Pulse Ox O2 Delivery O2 Flow Rate FiO2 01/24/22 08:00 98.3 72 12 143/82 (102) 90 Room Air 98.3 I & O 01/23/22 01/23/22 01/24/22 15:00 23:00 07:00 Intake Total 1050 ml 0 ml Output Total 400 ml 800 ml Balance 1050 ml -400 ml -800 ml Physical Exam General: No acute distress Heart: Regular rate Lungs: Clear Abdomen: Normal bowel sounds Extremities: No clubbing Skin: No rashes Labs Labs: Laboratory Tests Test 01/23/22 14:10 01/23/22 17:08 01/23/22 19:56 01/24/22 08:21 Urine Collection Type Unknown Urine Color (Auto) Yellow Urine Turbidity Clear Urine pH (Auto) 7.0 (<5.0-8.0) Urine Specific [place] 1.017 (1.000-1.030) Urine Protein (Auto) Negative mg/dL (Negative) Urine Glucose (Auto)(UA) >=1000 mg/dL (Negative) Urine Ketones (Auto) 10 mg/dL (Negative) Urine Blood (Auto) Negative (Negative) Urine Nitrite Negative (Negative) Urine Bilirubin (Auto) Negative (Negative) Urine Urobilinogen (Auto) 4 mg/dL (Normal) Urine Leukocyte Esterase (Auto) Negative (Negative) Urine RBC 3-5 /HPF (0-2) Urine WBC 0 /HPF (0-4) Urine Squamous Epithelial Cells Few /LPF Urine Bacteria 0 /HPF (0-FEW) Urine Mucus Slight /LPF Glucose (Fingerstick) 221 mg/dL (70-99) 248 mg/dL (70-99) 227 mg/dL (70-99) Test 01/24/22 09:35 White Blood Count 8.9 x10^3/uL (4.0-11.0) Red Blood Count 5.06 x10^6/uL (4.30-5.70) Hemoglobin 14.4 g/dL (13.0-17.5) Hematocrit 41.8 % (39.0-53.0) Mean Corpuscular Volume 83 fL (79-100) Mean Corpuscular Hemoglobin 28 pg (25-35) Mean Corpuscular Hemoglobin Concent 34 g/dL (31-37) Red Cell Distribution Width 13.7 % (11.5-14.5) Platelet Count 251 x10^3/uL (140-400) Neutrophils (%) (Auto) 65 % (31-73) Lymphocytes (%) (Auto) 24 % (24-48) Monocytes (%) (Auto) 9 % (0-9) Eosinophils (%) (Auto) 2 % (0-3) Basophils (%) (Auto) 1 % (0-3) Neutrophils # (Auto) 5.8 x10^3/uL (1.8-7.7) Lymphocytes # (Auto) 2.1 x10^3/uL (1.0-4.8) Monocytes # (Auto) 0.8 x10^3/uL (0.0-1.1) Eosinophils # (Auto) 0.1 x10^3/uL (0.0-0.7) Basophils # (Auto) 0.1 x10^3/uL (0.0-0.2) Sodium Level 141 mmol/L (136-145) Potassium Level 3.0 mmol/L (3.5-5.1) Chloride Level 104 mmol/L (98-107) Carbon Dioxide Level 27 mmol/L (21-32) Anion Gap 10 (6-14) Blood Urea Nitrogen 5 mg/dL (8-26) Creatinine 0.6 mg/dL (0.7-1.3) Estimated GFR (Cockcroft-Gault) 139.4 Glucose Level 203 mg/dL (70-99) Calcium Level 7.7 mg/dL (8.5-10.1) Assessment and Plan Assessmemt and Plan Problems Medical Problems: (1) Hyperglycemia due to diabetes mellitus Status: Acute (2) Hypomagnesemia Status: Acute (3) Lactic acidosis Status: Acute (4) Malfunction of García catheter Status: Acute Resolving nausea vomiting suspect element of gastroenteritis Uncontrolled HTN and DM, non-compliance N/v - resolved Lactic acidosis, hypomagnesemia - no labs today Bilateral hydroureteronephrosis, distended bladder - per urology Cholelithiasis - incidental CT finding Plan Discharge see dictation Comment Review of Relevant I have reviewed the following items shira (where applicable) has been applied. Medications: Current Medications Medications (Trade) Dose Ordered Sig/[place] Route PRN Reason Start Time Stop Time Status Last Admin Dose Admin Sodium Chloride 1,000 ml @ 75 mls/hr [id number] IV 01/23/22 11:30 01/23/22 22:30 Pantoprazole Sodium (Protonix) 40 mg DAILYAC PO 01/23/22 13:30 01/23/22 16:10 Justifications for Admission Other Justification Acute encephalopathy JANEEN CONNER III DO Jan 24, 2022 10:50
[2022-01-24] MEDS ORDERED: TAMS0.4C97 PO (10:54)
[2022-01-24] MEDS ORDERED: PANT40TA77 PO (10:54)
[2022-01-24 11:00] VITALS: BP 146/78
--- NOTE | 2022-01-24 11:11 | DS ---
DATE OF DISCHARGE: 01/24/2022 ADMITTING DIAGNOSES: Intractable nausea and vomiting, lactic acidosis and hypoglycemia. DISCHARGE DIAGNOSES: Resolving hypomagnesemia, resolving lactic acidosis, resolving nausea, vomiting. I suspect he had an element of gastroenteritis, noncompliance, incidental finding of bilateral hydroureteronephrosis and gallstones. CONSULTS: Urology and GI. PROCEDURES: None. HOSPITAL COURSE: The patient is a pleasant middle-aged male who presented with some intractable nausea and vomiting. We had an incidental finding of bilateral hydroureteronephrosis and gallstones. The above consults were obtained. No procedures were performed. Per Urology, we placed a García. We are going to change it to a leg bag. We got him on Flomax. They would like to keep it in for a week or two and then do a voiding trial. He will follow up with Urology. DISPOSITION: Home. ACTIVITY: As tolerated. DIET: Cardiac. DISCHARGE MEDICATIONS: Please see the MRAD. Flomax 0.4 a day, Protonix 40 a day, and metformin 500 b.i.d. TOTAL TIME: [address]: [place] TID: [id number]
[2022-01-24] MEDS: IV NORMAL SALINE 1000ML BAG 1,000 ML IV SCH (14:10)
[2022-01-24 15:00] VITALS: BP 144/94
[2022-01-24] MEDS ORDERED: POTASSIUM CHLORIDE 20 MEQ TABLET.ER. PO ONE (15:15)
--- NOTE | 2022-01-24 17:12 | NUR ---
Patient's fiancee verbalized understanding discharge instructions. Patient verbalized having a seymour catheter. Per patients request, rosaliae signed discharge.
[2022-01-24] MEDS ORDERED: TAMSULOSIN 0.4 MG CAP.ER.24H. PO SCH (21:00)
--- NOTE | 2022-01-26 12:25 | SNU/HH DC ---
DISCHARGE WITH HOME HEALTH DISCHARGE INFORMATION: Discharge Date: Jan 24, 2022 Final Diagnosis: Problems Medical Problems: (1) Hyperglycemia due to diabetes mellitus Status: Acute (2) Hypomagnesemia Status: Acute (3) Lactic acidosis Status: Acute (4) Malfunction of García catheter Status: Acute Condition on Discharge: Stable CODE STATUS: Code Status: Full HOME HEALTH: Face to Face: I certify this patient is under my care and that I, or a nurse practitioner or physician's funeral home assistant working with me, had a face to face encounter that meets the physician face to face encounter requirements with this patient on []. RN For Eval/Treatment: Yes Physical Therapy For: Evalulation/Treatment Occupational Therapy For: Evaluation/Treatment Pt Meets Homebound Status: Extreme weakness w/ amb., Frequent falls w/ injury POST DISCHARGE ORDERS: Activity Instructions for Disc: Activity as tolerated Weight Bearing Status after Di: No restrictions DIET AFTER DISCHARGE: Regular CHECKS AFTER DISCHARGE: Checks after discharge: Check blood press - daily, Check blood sugar, ac/hs, Check your Temp as needed, Weigh Yourself Daily FOLLOW-UP: Follow up with: Primary care physician with in 7 days Follow Up With: March 20 at 0830 am @ urology - [phone] TREATMENT/EQUIPMENT ORDERS: Adaptive Equipment Issued: Walker bag CERTIFICATION STATEMENT: Certification Statement: Certification Statement: Based on the above finding, I certify that this patient is confined to the home and needs intermittent residential care, physical therapy and/or speech therapy, or continues to need occupational therapy.~ This patient is under my care, and I have initiated the establishment of the plan of care.~ This patient will be followed by myself or a community physician who will periodically review the plan of care. Home Meds Active Scripts Pantoprazole Sodium (PANTOPRAZOLE SODIUM ) 40 Mg Tablet.dr, 40 MG PO DAILYAC for . for 30 Days, #30 TAB.SR Prov:CASTLE,NIAL K III DO 01/24/22 Tamsulosin Hcl (FLOMAX) 0.4 Mg Cap.er.24h, 0.4 MG PO QHS for . for 30 Days, #30 CAP.SR Prov:CASTLE,NIAL K III DO 01/24/22 Metformin Hcl (METFORMIN HCL) 500 Mg Tablet, 500 MG PO BIDWMEALS for ANTI- DIABETIC for 30 Days, #60 TAB 3 Refills Prov:BROWN ADKINS MD 12/29/21 EDDA THAPA MD Jan 26, 2022 12:25
== END 2022-01-24 17:05 | disposition home health service (06) ==
LOC: ER 02:11 → 4 NORTH 05:30
PROVIDERS: ADMIT Internal Medicine; ATTEND Internal Medicine
DX: E11.65 Type 2 diabetes mellitus with hyperglycemia (principal); R11.2 Nausea with vomiting, unspecified; I16.0 Hypertensive urgency; I10 Essential (primary) hypertension; R10.9 Unspecified abdominal pain; N13.30 Unspecified hydronephrosis; E87.6 Hypokalemia; E83.42 Hypomagnesemia; G93.40 Encephalopathy, unspecified; J45.909 Unspecified asthma, uncomplicated; E11.649 Type 2 diabetes mellitus with hypoglycemia without coma; K80.20 Calculus of gallbladder without cholecystitis without obstruction; R53.1 Weakness; T83.091A Other mechanical complication of indwelling urethral catheter, initial encounter; Z79.82 Long term (current) use of aspirin; Z79.899 Other long term (current) drug therapy; Z98.890 Other specified postprocedural states; Z91.19 Patient's noncompliance with other medical treatment and regimen; Y73.8 Miscellaneous gastroenterology and urology devices associated with adverse incidents, not elsewhere classified
CPT/HCPCS: 36415; 74177; 80048; 80053; 80307; 81001; 82962; 83605; 83690; 83735; 85025; 93005; 96361; 96365; 96366; 96375; 99285; G0378; G0480; J2405; J3475; J7030; Q9967; G0379